=== PATIENT | male | born 1970 | race Caucasian/White ===

== ENCOUNTER 2019-07-19 14:00 | Inpatient (IN) | payer OTHER ==
[~2019-07-19] VITALS: Ht 182.9 cm; Wt 90.7 kg
[2019-07-19 14:35] VITALS: Ht 182.9 cm; Wt 90.7 kg
[2019-07-19 15:04] LABS: BASOPHIL % 0.7 % (0-2); PLATELET COUNT 176 x10^3mcL (130-400); RED CELL DISTRIBUTION WIDTH 12.7 % (11.5-14.5)
[2019-07-19 15:25] LABS: BILIRUBIN TOTAL 0.4 mg/dL (0.20-1.00); CALCIUM 8.9 mg/dL (8.5-10.1); CARBON DIOXIDE 29.8 mmol/L (21-32); CREATININE SERUM 1.4 mg/dL (0.7-1.3); POTASSIUM SERUM 5.2 mmol/L (3.5-5.1); TOTAL PROTEIN, SERUM 7.5 g/dL (6.4-8.2)
[2019-07-19 15:36] LABS: ALBUMIN 2.5 g/dL (3.4-5.0)
[2019-07-19] MEDS ORDERED: METFORMIN HCL1000 MG PO (18:19)
[2019-07-19] MEDS ORDERED: Z PO (18:20)
[2019-07-19] MEDS ORDERED: GLUCOTROL5 MG PO (18:20)
[2019-07-19] MEDS ORDERED: INSULIN (18:21)
[2019-07-19] MEDS ORDERED: PRINIVIL5 MG PO (18:22)
[2019-07-19 20:28] LABS: MAGNESIUM 1.8 mg/dL (1.8-2.4)
[2019-07-20 00:30] VITALS: BP 155/102
[2019-07-20 05:20] VITALS: BP 171/101
[2019-07-20 06:16] LABS: PLATELET COUNT 174 x10^3mcL (130-400); RED CELL DISTRIBUTION WIDTH 12.8 % (11.5-14.5)
[2019-07-20 06:36] LABS: CALCIUM 8.4 mg/dL (8.5-10.1); CHLORIDE SERUM 100 mmol/L (98-107); CREATININE SERUM 0.9 mg/dL (0.7-1.3); GFR1 > 60 mL/min; GLUCOSE SERUM 210 mg/dL (74-106); POTASSIUM SERUM 4.4 mmol/L (3.5-5.1); SODIUM SERUM 136 mmol/L (136-145)
[2019-07-20 08:55] VITALS: BP 176/96
[2019-07-20 12:43] VITALS: BP 179/94
[2019-07-20 13:46] LABS: BAND NEUTROPHIL 0 % (0-10); BASOPHIL 0 % (0-2); MONOCYTE 17 % (0-7); SEGMENTED NEUTROPHILS 80 % (37-75)
[2019-07-20 13:48] LABS: PLATELET MORPHOLOGY PLATELETS DECREASED; rbc morphology (normal/abnorm) NORMAL (NORMAL)
[2019-07-20 16:13] VITALS: BP 149/78
[2019-07-20 20:45] VITALS: BP 153/98
[2019-07-21 05:41] VITALS: BP 161/95
[2019-07-21 08:57] VITALS: BP 153/92
[2019-07-21 10:14] LABS: BASOPHIL % 0.2 % (0-2); PLATELET COUNT 188 x10^3mcL (130-400); RED CELL DISTRIBUTION WIDTH 12.5 % (11.5-14.5)
[2019-07-21 10:19] LABS: CALCIUM 8.5 mg/dL (8.5-10.1); CARBON DIOXIDE 25.3 mmol/L (21-32); CHLORIDE SERUM 102 mmol/L (98-107); CREATININE SERUM 0.8 mg/dL (0.7-1.3); GFR1 > 60 mL/min; GLUCOSE SERUM 215 mg/dL (74-106); POTASSIUM SERUM 3.9 mmol/L (3.5-5.1); SODIUM SERUM 137 mmol/L (136-145)
[2019-07-21 11:56] VITALS: BP 156/89
[2019-07-21 15:54] VITALS: BP 147/86
[2019-07-21 20:32] VITALS: BP 140/72
[2019-07-22 05:11] VITALS: BP 127/88
[2019-07-22 07:03] LABS: BASOPHIL % 0.2 % (0-2); PLATELET COUNT 200 x10^3mcL (130-400); RED CELL DISTRIBUTION WIDTH 12.7 % (11.5-14.5)
[2019-07-22 07:17] LABS: CALCIUM 8.3 mg/dL (8.5-10.1); CARBON DIOXIDE 23.5 mmol/L (21-32); CHLORIDE SERUM 102 mmol/L (98-107); CREATININE SERUM 0.8 mg/dL (0.7-1.3); GFR1 > 60 mL/min; GLUCOSE SERUM 203 mg/dL (74-106); POTASSIUM SERUM 3.8 mmol/L (3.5-5.1); SODIUM SERUM 134 mmol/L (136-145)
[2019-07-22 08:29] VITALS: BP 141/85
[2019-07-22 12:09] VITALS: BP 139/89
[2019-07-22 15:53] VITALS: BP 135/70
[2019-07-23 05:40] VITALS: BP 158/87
[2019-07-23 08:03] VITALS: BP 144/87
[2019-07-23 12:32] VITALS: BP 150/88
[2019-07-23 16:32] VITALS: BP 137/81
[2019-07-23 18:19] VITALS: BP 137/81
== END 2019-07-23 19:05 | disposition short-term general hospital (02) | DRG 383 ==
LOC: ED 14:00 → MU 18:01 → DU 07-22 11:16 → MU 07-22 17:09
PROVIDERS: Emergency Medicine; Internal Medicine; ADMIT Internal Medicine Pulmonary Disease
PROC: 0HB1XZZ Excision of Face Skin, External Approach (ICD-10-PCS; principal; 2019-07-23)
DX: L03.213 Periorbital cellulitis (principal); N17.9 Acute kidney failure, unspecified; E10.65 Type 1 diabetes mellitus with hyperglycemia; E87.1 Hypo-osmolality and hyponatremia; E87.5 Hyperkalemia; I10 Essential (primary) hypertension; Z79.84 Long term (current) use of oral hypoglycemic drugs
CPT/HCPCS: 82962; G0378; J0295; J0360; J0690; J1815; J2543; J3370; J7030; J7060